=== PATIENT | male | born 1960 | race Caucasian/White ===

== ENCOUNTER 2016-03-09 08:01 | Outpatient (CLI) | payer BC, OTHER ==
[2016-03-09 08:36] VITALS: RESP 14
[2016-03-09] MEDS ORDERED: diphenhydrAMINE 50 MG CAP PO STA (08:47)
[2016-03-09 09:23] VITALS: BP 193/111; PULSE 60
--- NOTE | 2016-03-09 15:51 | CT ---
EXAMINATION TYPE: CT brain wo/w con DATE OF EXAM: 03/09/2016 8:47 AM COMPARISON: NONE HISTORY: Patient complains of increasing frequency and severity of headaches since heart cath [address] DLP: 1954 mGycm, Automated exposure control for dose reduction was used. CONTRAST: Patient injected with 100 mL of Omnipaque 300. CT of the brain is performed utilizing 3 mm thick sections through the posterior fossa and 3 mm thick sections through the remaining calvarium. Study is performed within 24 hours of arrival to the hospital. No abnormal hyperdensity is present to suggest an acute intracranial hemorrhage. No mass lesion is evident. No acute infarcts are evident. No abnormal enhancement is evident. Signal within the brain appears n ormal. Ventricles and sulci are appropriate for the patient age. Paranasal sinuses and mastoid air cells within the [id number]-tj-dkol are clear. Impressions: 1. Normal pre and postcontrast CT brain.
== END 2016-03-09 09:29 | disposition home or self-care (01) ==
LOC: RADCTMAIN 08:01
PROVIDERS: ATTEND Psychiatry & Neurology Pain Medicine
DX: R51 Headache (principal)
CPT/HCPCS: 70470; Q9967

== ENCOUNTER → 2016-07-30 | Outpatient (CLI) | payer OTHER ==
--- NOTE | 2016-07-31 08:42 | XR ---
Lumbar spine with flexion and extension views 6 views of the lumbar spine are submitted There is mild dextroscoliosis centered at L3. Multilevel spondylosis is present. Loss of disc height present at L5-S1. Sclerosis present in the posterior elements. No significant listhesis noted on flex ion and extension views. Lumbar vertebral bodies show preserved height and bone mineralization. IMPRESSION: Degenerative disc disease. Mild scoliosis.
== END ==
LOC: RADXRMAIN 12:54
PROVIDERS: ATTEND Psychiatry & Neurology Neurology
DX: M51.36 Other intervertebral disc degeneration, lumbar region (principal); M41.86 Other forms of scoliosis, lumbar region
CPT/HCPCS: 72114

== ENCOUNTER → 2017-03-18 | Outpatient (CLI) | payer OTHER ==
[2017-03-18 12:37] LABS: Basophils # (A) 0.2 k/uL (0-0.2); Basophils % (A) 1 %; Eosinophils # (A) 0.4 k/uL (0-0.7); Eosinophils % (A) 2 %; HCT 46.7 % (39.0-53.0); HGB 14.9 gm/dL (13.0-17.5); Lymphocytes # (A) 3.9 k/uL (1.0-4.8); Lymphocytes % (A) 26 %; MCH 30.2 pg (25.0-35.0); MCHC 31.9 g/dL (31.0-37.0); MCV 94.8 fL (80.0-100.0); Monocytes % (A) 7 %; Neutrophils # (A) 9.5 k/uL (1.3-7.7); Neutrophils % (A) 63 %; Platelet Count 187 k/uL (150-450); RBC 4.92 m/uL (4.30-5.90); RDW 14.8 % (11.5-15.5); WBC 15.2 k/uL (3.8-10.6)
[2017-03-18 12:53] LABS: ALT 50 U/L (21-72); AST 26 U/L (17-59); Albumin 3.9 g/dL (3.5-5.0); Alkaline Phosphatase 75 U/L (38-126); Anion Gap 10 mmol/L; Blood Urea Nitrogen 17 mg/dL (9-20); Calcium 8.7 mg/dL (8.4-10.2); Carbon Dioxide 35 mmol/L (22-30); Chloride 96 mmol/L (98-107); Glucose 141 mg/dL (74-99); Potassium 3.4 mmol/L (3.5-5.1); Sodium 141 mmol/L (137-145); Total Bilirubin 0.5 mg/dL (0.2-1.3); Total Protein 6.6 g/dL (6.3-8.2)
[2017-03-18 13:23] LABS: Prostate Specific Antigen 0.75 ng/mL (0.00-4.00)
== END | disposition home or self-care (01) ==
LOC: LABWHC1 12:20
PROVIDERS: ATTEND Family Medicine
DX: E78.5 Hyperlipidemia, unspecified (principal); Z12.11 Encounter for screening for malignant neoplasm of colon
CPT/HCPCS: 36415; 80053; 84153; 85025

== ENCOUNTER → 2017-05-16 | Outpatient (CLI) | payer OTHER ==
--- NOTE | 2017-05-16 14:42 | US ---
EXAMINATION TYPE: US carotid duplex BILAT DATE OF EXAM: 05/16/2017 COMPARISON: NONE CLINICAL HISTORY: R42 Vertigo. Dizziness for 1 year, headaches EXAM MEASUREMENTS: RIGHT: Peak Systolic Velocity (PSV) cm/sec ----- Right CCA: 68.6 ----- Right ICA: 64.2 ----- Right ECA: 76.4 ICA/CCA ratio: 0.9 RIGHT: End Diastole cm/sec ----- Right CCA: 21.5 ----- Right ICA: 35.4 ----- Right ECA: 12.7 LEFT: Peak Systolic Velocity (PSV) cm/sec ----- Left CCA: 57.5 ----- Left ICA: 66.2 ----- Left ECA: 61.9 ICA/CCA ratio: 1.2 LEFT: End Diastole cm/sec ----- Left CCA: 19.1 ----- Left ICA: 32.2 ----- Left ECA: 12.1 VERTEBRALS (direction of flow): Right Vertebral: unable to visualize Left Vertebral: Antegrade Rhythm: Normal Mild plaque bilateral bifurcations. No evidence of significant stenosis. Unable to visualize flow wit hin right vertebral IMPRESSION: 1. Inability to visualize flow within the right vertebral artery. This could represent total occlusi on or artifact and CT neck could be performed for further evaluation. 2. Mild grayscale atheromatous plaquing within the carotid bulbs and left internal carotid artery wi th no hemodynamically significant stenosis within either carotid arterial system.
== END | disposition home or self-care (01) ==
LOC: RADUSWWP 10:06
PROVIDERS: ATTEND Psychiatry & Neurology Pain Medicine
DX: I65.23 Occlusion and stenosis of bilateral carotid arteries (principal)
CPT/HCPCS: 93880

== ENCOUNTER → 2017-06-03 | Outpatient (CLI) | payer OTHER ==
--- NOTE | 2017-06-03 18:28 | CT ---
EXAMINATION TYPE: CT angio head neck DATE OF EXAM: 06/03/2017 HISTORY: carotid stenosis dizziness COMPARISON: NONE CT DLP: 1409.7 mGycm. Automated Exposure Control for Dose Reduction was Utilized. TECHNIQUE: CTA scan of the neck and head is performed with IV Contrast, patient injected with 100 mL of Isovue 370, axial images are obtained, coronal and sagittal reformatted images are reviewed. Thre e-D reconstructed images are created on an independent workstation and reviewed. FINDINGS: The noncontrast images show normal ventricles. There is no mass effect nor midline shift. There is no sign of intracranial hemorrhage. The calvarium is intact. There is normal branching pattern of the great vessels on the aortic arch. There is minimal atheroscl erotic vascular calcification. There is arterial flow in the common internal and external carotid art eries bilaterally. There is minimal plaque at the origin of the right internal carotid artery with mateusz men narrowing of 20%. I see no narrowing on the left side. There is no evidence of carotid dissection . There is bilateral arterial flow in the vertebral arteries. The basilar artery appears to fill only from the left side. There is arterial flow in the anterior middle and posterior cerebral arteries. The basilar artery sahara ls the left posterior cerebral artery. There is apparent filling of the right posterior cerebral brie ry through the posterior communicating artery on the right side. I see no evidence of intracranial ar terial stenosis. There is normal contrast opacification of the venous sinuses. There is no evidence o f spasm or neovascularity. CONCLUSION: There is approximate 20% stenosis at the origin of the right internal carotid artery. Otherwise negat james CT angiogram of the head and neck.
== END | disposition home or self-care (01) ==
LOC: RADCTMAIN 16:43
PROVIDERS: ATTEND Psychiatry & Neurology Neurology
DX: I65.21 Occlusion and stenosis of right carotid artery (principal)
CPT/HCPCS: 70496; 70498; Q9967

== ENCOUNTER → 2017-12-12 | Outpatient (CLI) | payer OTHER ==
[2017-12-12 16:16] LABS: ALT 27 U/L (21-72); AST 22 U/L (17-59); Albumin 4.4 g/dL (3.5-5.0); Alkaline Phosphatase 71 U/L (38-126); Anion Gap 9 mmol/L; Blood Urea Nitrogen 17 mg/dL (9-20); Calcium 8.9 mg/dL (8.4-10.2); Carbon Dioxide 31 mmol/L (22-30); Chloride 97 mmol/L (98-107); Cholesterol 214 mg/dL (<200); Glucose 120 mg/dL (74-99); HDL Cholesterol 52 mg/dL (40-60); LDL Cholesterol,Calculated 114 mg/dL (0-99); Potassium 3.6 mmol/L (3.5-5.1); Sodium 137 mmol/L (137-145); Total Bilirubin 0.6 mg/dL (0.2-1.3); Total Protein 7.3 g/dL (6.3-8.2); Triglycerides 242 mg/dL (<150)
[2017-12-12 16:24] LABS: Basophils # (A) 0.1 k/uL (0-0.2); Basophils % (A) 1 %; Eosinophils # (A) 0.2 k/uL (0-0.7); Eosinophils % (A) 1 %; HCT 49.1 % (39.0-53.0); HGB 15.9 gm/dL (13.0-17.5); Lymphocytes # (A) 3.1 k/uL (1.0-4.8); Lymphocytes % (A) 21 %; MCHC 32.3 g/dL (31.0-37.0); MCV 89.7 fL (80.0-100.0); Mean Platelet Volume 9.1; Monocytes # (A) 0.7 k/uL (0-1.0); Monocytes % (A) 5 %; Neutrophils # (A) 10.3 k/uL (1.3-7.7); Neutrophils % (A) 71 %; Platelet Count 192 k/uL (150-450); RBC 5.47 m/uL (4.30-5.90); RDW 13.4 % (11.5-15.5); WBC 14.6 k/uL (3.8-10.6)
== END ==
LOC: LABWHC1 14:47
PROVIDERS: ATTEND Family Medicine
DX: E78.5 Hyperlipidemia, unspecified (principal); I10 Essential (primary) hypertension
CPT/HCPCS: 36415; 80053; 80061; 82306; 85025

== ENCOUNTER → 2017-12-19 | Outpatient (CLI) | payer OTHER ==
[2017-12-19 12:41] LABS: Cholesterol 191 mg/dL (<200); HDL Cholesterol 51 mg/dL (40-60); LDL Cholesterol,Calculated 113 mg/dL (0-99); Triglycerides 133 mg/dL (<150)
== END ==
LOC: LABWHC1 11:12
PROVIDERS: ATTEND Nurse Practitioner Adult Health
DX: E78.5 Hyperlipidemia, unspecified (principal)
CPT/HCPCS: 36415; 80061

== ENCOUNTER → 2018-01-17 | Outpatient (CLI) | payer OTHER ==
[2018-01-17 13:54] LABS: HCT 52.4 % (39.0-53.0); HGB 17.1 gm/dL (13.0-17.5); MCH 30.5 pg (25.0-35.0); MCHC 32.7 g/dL (31.0-37.0); MCV 93.3 fL (80.0-100.0); Mean Platelet Volume 8.8; Platelet Count 171 k/uL (150-450); RBC 5.61 m/uL (4.30-5.90); WBC 13.3 k/uL (3.8-10.6)
[2018-01-17 14:02] LABS: Potassium 4.3 mmol/L (3.5-5.1)
== END | disposition home or self-care (01) ==
LOC: LABPAT 13:12
PROVIDERS: ATTEND Internal Medicine Interventional Cardiology
DX: Z01.812 Encounter for preprocedural laboratory examination (principal); I25.10 Atherosclerotic heart disease of native coronary artery without angina pectoris; I25.5 Ischemic cardiomyopathy
CPT/HCPCS: 36415; 80051; 82565; 84520; 85027

== ENCOUNTER → 2018-01-24 | Day surgery (SDC) | payer OTHER ==
[2018-01-19 11:17] VITALS: BMI 33.2
[~2018-01-24] MED LIST: ALPRAZolam 0.25 MG TAB PO PRN; ALPRAZolam 0.5 MG TAB PO PRN; ASPIRIN 325 MG TAB PO STA; ATORVASTATIN 80 MG TAB PO STA; HEPARIN SODIUM 1,000 UN/ML (10ML VL) IV ONE; HEPARIN SODIUM 1,000 UN/ML (10ML VL) ONE; IOPAMIDOL-370 125ML BTL INJ ONE; LIDOCAINE 1% INJ 10MG/ML (20 ML MDV) ONE; LIDOCAINE 1% INJ 10MG/ML (20 ML MDV) SQ ONE; MIDAZOLAM 2 MG/2 ML VIAL IV ONE; MIDAZOLAM 2 MG/2 ML VIAL ONE; NITROGLYCERIN SL TABS 0.4 MG TAB SUBLINGUAL PRN; RX INFO: IV CONTRAST WAS GIVEN 1 EACH MISC MISCELLANE PRN; SODIUM CHLORIDE 0.9% 1,000 ML IV SCH; SODIUM CHLORIDE 0.9% 1,000 ML in EMPTY BAG 1 BAG IV ONE; VERAPAMIL 2.5 MG/ML 2 ML AMP ONE
[2018-01-24 07:52] VITALS: RESP 18; TEMP 97.6
[2018-01-24 08:14] LABS: Glucose,Whole Blood 154 mg/dL (75-99)
[2018-01-24 08:57] LABS: Basophils # (A) 0.1 k/uL (0-0.2); Basophils % (A) 0 %; Eosinophils # (A) 0.1 k/uL (0-0.7); Eosinophils % (A) 0 %; HCT 45.3 % (39.0-53.0); HGB 14.6 gm/dL (13.0-17.5); Lymphocytes # (A) 1.5 k/uL (1.0-4.8); Lymphocytes % (A) 12 %; MCH 30.5 pg (25.0-35.0); MCHC 32.3 g/dL (31.0-37.0); MCV 94.4 fL (80.0-100.0); Mean Platelet Volume 8.8; Monocytes # (A) 0.6 k/uL (0-1.0); Monocytes % (A) 5 %; Neutrophils # (A) 10.2 k/uL (1.3-7.7); Neutrophils % (A) 81 %; Platelet Count 175 k/uL (150-450); RDW 14.3 % (11.5-15.5); WBC 12.6 k/uL (3.8-10.6)
[2018-01-24] MEDS: VERAPAMIL SYRINGE (5 MG/10 ML) INTRAARTER ONE ×2 (09:38→09:50)
--- NOTE | 2018-01-24 10:19 | LTR ---
DATE OF SERVICE: 01/24/2018 RE: Jackson Kumar Dear Dr. Lange; Mr. Jackson Kumar underwent a heart catheterization today for recurrent episodes of chest discomfort concerning for angina. The heart catheterization revealed patent stent in the mid left anterior descending artery. I want to thank you for allowing me to participate in his care and please do not hesitate to call if you have any question or concern. Sincerely, MD LEIDY Garay / GABRIEL: [id number] /
--- NOTE | 2018-01-24 10:22 | CC ---
CARDIAC CATHETERIZATION REPORT DATE OF SERVICE: January 24, 2018 PERFORMING PHYSICIAN: Juvencio Hdz MD, elementary school registrar. PROCEDURE PERFORMED: 1. Selective right and left coronary angiogram. 2. Left heart catheterization. INDICATION: This is a pleasant, 57-year-old gentleman with known history of coronary artery disease and known intermediate disease involving the proximal RCA, chronic total occlusion of the left circumflex, and stent in the mid LAD, was experiencing chest discomfort concerning for angina. Because of that, a heart catheterization was advised. APPROACH: Right radial artery. COMPLICATION: None. LEVEL OF SEDATION: Moderate with sedation length of 14 minutes. PROCEDURE DESCRIPTION: After obtaining an informed consent, the patient was brought to cardiac bottle label inspector. The right radial artery was cannulated using micropuncture technique, the micropuncture wire passed easily then I placed a 6-Colombian sheath in the right radial artery. After that, I did selective right and left coronary angiogram using JR4 and JL3.5 catheters. Left heart catheterization was performed using 6-Colombian pigtail catheter. The procedure was completed without any complication. SELECTIVE CORONARY ANGIOGRAM: 1. The right coronary artery is a large caliber vessel. It is a dominant vessel. The proximal RCA has eccentric lesion appeared to be in the range of 50% and is unchanged compared to before. The mid RCA appeared to have mild disease only and RCA distally is normal and bifurcates into PDA and PLV branches, both are angiographically normal. 2. The left main is angiographically normal. It bifurcates into left circumflex and left anterior descending artery. 3. Left circumflex is a large caliber vessel and it is probably a nondominant vessel. The left circumflex is chronically occluded in the midportion. This is known from before. 4. The LAD: The proximal LAD appeared to be angiographically normal. It gives rise into a large diagonal branch which seems to be angiographically normal. The mid LAD is stented and the stent is patent. The LAD distally is angiographically normal. HEMODYNAMICS: The left ventricular end-diastolic pressure was 12 mmHg and no gradient was identified across the aortic valve. CONCLUSION: 1. Intermediate disease involving the proximal RCA, unchanged compared to before. 2. Known chronic total occlusion of the left circumflex which is also unchanged compared to before. 3. Patent stent in the mid left anterior descending artery. POSTPROCEDURE MANAGEMENT: Giving the unchanged anatomy and the patent stent in the mid LAD, I did recommend maximize medical treatment and follow up with the patient. LEIDY / GABRIEL: [id number] /
[2018-01-24 15:02] VITALS: BP 133/61; PULSE 88
== END ==
LOC: CATHCVL 07:17
PROVIDERS: ATTEND Internal Medicine Interventional Cardiology
DX: I25.110 Atherosclerotic heart disease of native coronary artery with unstable angina pectoris (principal); I25.82 Chronic total occlusion of coronary artery; I10 Essential (primary) hypertension; F17.210 Nicotine dependence, cigarettes, uncomplicated; E78.5 Hyperlipidemia, unspecified; Z82.49 Family history of ischemic heart disease and other diseases of the circulatory system; Z95.5 Presence of coronary angioplasty implant and graft; I25.5 Ischemic cardiomyopathy; Z79.51 Long term (current) use of inhaled steroids; Z79.899 Other long term (current) drug therapy
CPT/HCPCS: 93458; 85025; C1769; C1894; J2250; J2001; J1644; Q9967

== ENCOUNTER → 2018-03-29 | Outpatient (CLI) | payer OTHER ==
[2018-03-29 13:19] LABS: Basophils # (A) 0.2 k/uL (0-0.2); Basophils % (A) 2 %; Eosinophils # (A) 0.4 k/uL (0-0.7); Eosinophils % (A) 4 %; Lymphocytes # (A) 2.5 k/uL (1.0-4.8); Lymphocytes % (A) 23 %; MCH 30.2 pg (25.0-35.0); MCV 94.4 fL (80.0-100.0); Monocytes # (A) 0.6 k/uL (0-1.0); Monocytes % (A) 6 %; Neutrophils # (A) 6.9 k/uL (1.3-7.7); Neutrophils % (A) 64 %; Platelet Count 183 k/uL (150-450); RDW 13.7 % (11.5-15.5); WBC 10.8 k/uL (3.8-10.6)
[2018-03-29 18:18] LABS: Albumin 4.4 g/dL (3.80-4.90); Anion Gap 8.8 mmol/L (4.00-12.00); Carbon Dioxide 30.2 mmol/L (21.6-31.8); Globulin 2.2 g/dL (1.6-3.3); Potassium 3.7 mmol/L (3.5-5.5); Total Bilirubin 0.6 mg/dL (0.2-1.2); Total Protein 6.6 g/dL (6.2-8.2)
[2018-03-29 20:03] LABS: Hemoglobin A1C 6.1 % (4.0-6.0)
== END | disposition home or self-care (01) ==
LOC: LABWHC1 11:59
PROVIDERS: ATTEND Family Medicine
DX: Z00.00 Encounter for general adult medical examination without abnormal findings (principal)
CPT/HCPCS: 36415; 80053; 83036; 85025

== ENCOUNTER → 2018-10-04 | Outpatient (CLI) | payer MEDICARE, OTHER ==
[2018-10-04 13:06] LABS: Basophils # (A) 0.1 k/uL (0-0.2); Basophils % (A) 1 %; Eosinophils # (A) 0.3 k/uL (0-0.7); Eosinophils % (A) 4 %; HCT 51.5 % (39.0-53.0); HGB 16.4 gm/dL (13.0-17.5); Lymphocytes # (A) 2.6 k/uL (1.0-4.8); Lymphocytes % (A) 31 %; MCH 29.6 pg (25.0-35.0); MCHC 31.9 g/dL (31.0-37.0); Mean Platelet Volume 9.4; Monocytes # (A) 0.5 k/uL (0-1.0); Monocytes % (A) 5 %; Neutrophils # (A) 4.9 k/uL (1.3-7.7); Neutrophils % (A) 58 %; Platelet Count 154 k/uL (150-450); RBC 5.54 m/uL (4.30-5.90); RDW 13.1 % (11.5-15.5); WBC 8.4 k/uL (3.8-10.6)
[2018-10-04 19:17] LABS: Hemoglobin A1C 6.1 % (4.0-6.0)
[2018-10-04 20:37] LABS: African American GFR (CKD) 96.4 (60.0-200.0); Albumin 4.2 g/dL (3.80-4.90); Albumin/Globulin Ratio 2.21 (1.60-3.17); Anion Gap 9.2 mmol/L (4.00-12.00); Calcium 8.4 mg/dL (8.7-10.3); Carbon Dioxide 28.8 mmol/L (21.6-31.8); Globulin 1.9 g/dL (1.6-3.3); Potassium 3.7 mmol/L (3.5-5.5); Total Bilirubin 0.3 mg/dL (0.3-1.2); Total Protein 6.1 g/dL (6.2-8.2)
== END | disposition home or self-care (01) ==
LOC: LABWHC1 12:35
PROVIDERS: ATTEND Family Medicine
DX: E55.9 Vitamin D deficiency, unspecified (principal); I10 Essential (primary) hypertension; R73.01 Impaired fasting glucose; R97.20 Elevated prostate specific antigen [PSA]
CPT/HCPCS: 36415; 80053; 82306; 83036; 84153; 85025

== ENCOUNTER → 2020-01-23 | Outpatient (CLI) | payer MEDICARE, OTHER ==
[2020-01-23 16:58] LABS: INR 5.1 (<1.2)
== END | disposition home or self-care (01) ==
LOC: LABWHC1 15:17
PROVIDERS: ATTEND Psychiatry & Neurology Pain Medicine
DX: Z51.81 Encounter for therapeutic drug level monitoring (principal)
CPT/HCPCS: 36415; 85610

== ENCOUNTER → 2020-01-25 | Outpatient (CLI) | payer MEDICARE, OTHER ==
[2020-01-26] LABS: INR 2.66 (0.90-1.11); Prothrombin Time 26.7 sec (9.9-11.9)
== END | disposition home or self-care (01) ==
LOC: LABWHC1 14:31
PROVIDERS: ATTEND Psychiatry & Neurology Pain Medicine
DX: Z01.818 Encounter for other preprocedural examination (principal); Z51.81 Encounter for therapeutic drug level monitoring; Z79.899 Other long term (current) drug therapy
CPT/HCPCS: 36415; 85610

== ENCOUNTER 2020-03-05 15:26 | Emergency (ER) | payer MEDICARE, OTHER ==
[2020-03-05 15:45] VITALS: BP 118/77; PULSE 86; RESP 18; TEMP 98.5
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
--- NOTE | 2020-03-05 16:24 | XR ---
Left ankle and left leg HISTORY: Trauma and pain 3 views of the left ankle, 4 views of the left leg There is an oblique fracture through the distal fibula metaphysis with displacement of approximately 4 mm. No dislocation. Small ossific fragment is present along the medial malleolus on the oblique vie w. There is a plantar calcaneal spur present. Atherosclerotic vascular calcifications are noted incid entally within the left leg. Questionable widening along the base of the medial malleolus and talus. IMPRESSION: Fracture of the distal fibula, possible avulsion injury, chip fracture of the medial mall eolus. There is associated soft tissue swelling. Plantar calcaneal spur.
[2020-03-05] MEDS ORDERED: ACET/COD 300 MG/30 MG STARTER PACK 6 TAB BTL PO STA (16:47)
== END 2020-03-05 17:53 | disposition home or self-care (01) ==
LOC: EC 15:26
DX: S82.52XA Displaced fracture of medial malleolus of left tibia, initial encounter for closed fracture (principal); S82.832A Other fracture of upper and lower end of left fibula, initial encounter for closed fracture; J44.9 Chronic obstructive pulmonary disease, unspecified; E78.5 Hyperlipidemia, unspecified; K21.9 Gastro-esophageal reflux disease without esophagitis; I25.2 Old myocardial infarction; I11.9 Hypertensive heart disease without heart failure; I43 Cardiomyopathy in diseases classified elsewhere; F32.9 Major depressive disorder, single episode, unspecified; F17.200 Nicotine dependence, unspecified, uncomplicated; F41.9 Anxiety disorder, unspecified; Z79.51 Long term (current) use of inhaled steroids; Z79.1 Long term (current) use of non-steroidal anti-inflammatories (NSAID); Z79.01 Long term (current) use of anticoagulants; Z91.041 Radiographic dye allergy status; Z91.013 Allergy to seafood; Z91.030 Bee allergy status; Z79.899 Other long term (current) drug therapy; Z95.810 Presence of automatic (implantable) cardiac defibrillator; Z95.5 Presence of coronary angioplasty implant and graft; Z98.890 Other specified postprocedural states; W00.0XXA Fall on same level due to ice and snow, initial encounter
CPT/HCPCS: 29515; 99283

== ENCOUNTER → 2020-03-14 | Outpatient (CLI) | payer MEDICARE, OTHER ==
[2020-03-14 12:56] LABS: Anisocytosis Slight; Basophils % (A) 0 %; Eosinophils # (A) 0.1 k/uL (0-0.7); Eosinophils % (A) 0 %; HCT 37.2 % (39.0-53.0); HGB 11.9 gm/dL (13.0-17.5); Hypochromasia Slight; Lymphocytes # (A) 1.5 k/uL (1.0-4.8); Lymphocytes % (A) 7 %; MCH 31.7 pg (25.0-35.0); MCHC 31.9 g/dL (31.0-37.0); MCV 99.2 fL (80.0-100.0); Macrocytosis Moderate; Mean Platelet Volume 8.5; Monocytes # (A) 1.1 k/uL (0-1.0); Monocytes % (A) 6 %; Neutrophils # (A) 17.8 k/uL (1.3-7.7); Neutrophils % (A) 86 %; Platelet Count 190 k/uL (150-450); RBC 3.75 m/uL (4.30-5.90); RDW 17.6 % (11.5-15.5); WBC 20.6 k/uL (3.8-10.6)
[2020-03-14 13:24] LABS: Potassium 4.5 mmol/L (3.5-5.1)
[2020-03-14 14:09] LABS: Prothrombin Time 10.5 sec (9.0-12.0)
== END | disposition home or self-care (01) ==
LOC: LABPAT 11:32
PROVIDERS: ATTEND Orthopaedic Surgery
DX: Z01.812 Encounter for preprocedural laboratory examination (principal); S82.842D Displaced bimalleolar fracture of left lower leg, subsequent encounter for closed fracture with routine healing; Z79.01 Long term (current) use of anticoagulants
CPT/HCPCS: 36415; 80051; 85025; 85610

== ENCOUNTER 2020-03-19 12:45 | Day surgery (SDC) | payer MEDICARE, OTHER ==
[2020-03-17 13:30] VITALS: BMI 25.7
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
[~2020-03-19 12:45] MED LIST changes: +ACETAMINOPHEN TAB 500 MG TAB PO PRN; -ALPRAZolam 0.25 MG TAB PO PRN; -ALPRAZolam 0.5 MG TAB PO PRN; -ASPIRIN 325 MG TAB PO STA; -ATORVASTATIN 80 MG TAB PO STA; +DEXAMETHASONE SOD PHOSPHATE 4 MG/ML 1 ML VIAL IV ONE; -HEPARIN SODIUM 1,000 UN/ML (10ML VL) IV ONE; -HEPARIN SODIUM 1,000 UN/ML (10ML VL) ONE; +HYDROmorphone 0.5 MG/0.5 ML SYRINGE IVP PRN; -IOPAMIDOL-370 125ML BTL INJ ONE; +LACTATED RINGERS 1,000 ML IV SCH; -LIDOCAINE 1% INJ 10MG/ML (20 ML MDV) ONE; -LIDOCAINE 1% INJ 10MG/ML (20 ML MDV) SQ ONE; -MIDAZOLAM 2 MG/2 ML VIAL IV ONE; -MIDAZOLAM 2 MG/2 ML VIAL ONE; -NITROGLYCERIN SL TABS 0.4 MG TAB SUBLINGUAL PRN; +ONDANSETRON 4 MG/2 ML VIAL IVP ONE; +ONDANSETRON 4 MG/2 ML VIAL IVP PRN; -RX INFO: IV CONTRAST WAS GIVEN 1 EACH MISC MISCELLANE PRN; -SODIUM CHLORIDE 0.9% 1,000 ML IV SCH; -SODIUM CHLORIDE 0.9% 1,000 ML in EMPTY BAG 1 BAG IV ONE; -VERAPAMIL 2.5 MG/ML 2 ML AMP ONE
[2020-03-19] MEDS ORDERED: MIDAZOLAM 2 MG/2 ML VIAL IV ONE (14:39)
--- NOTE | 2020-03-19 15:03 | P.ANPRN ---
Procedure Note - Anesthesia - Nerve Block Performed Left Adductor Canal Single Time Out Performed: Yes (143) Date of Procedure: 03/19/20 Procedure Start Time: 14:45 Procedure Stop Time: 14:51 Location of Patient: PreOp Indication: Acute Post-Operative Pain, Requested by Surgeon Specifically requested for management of pain by : Oleg Caba Sedation Type: Sedate with meaningful contact maintained Preparation: Sterile Prep Position: Supine Catheter: None Needle Types: Pajunk Needle Gauge: 21 Ultrasound used to visualize needle placement: Yes Ultrasound used to observe medication spread: Yes Injectate: 0.5% Ropivacaine (see comment for volume) (20cc) Blood Aspirated: No Pain Paresthesia on Injection Noted: No Resistance on Injection: Normal Image Stored and Saved: Yes Events: Uneventful and Well Tolerated Left Popliteal Single Time Out Performed: Yes (143) Date of Procedure: 03/19/20 Procedure Start Time: 14:39 Procedure Stop Time: 14:44 Location of Patient: PreOp Indication: Acute Post-Operative Pain, Requested by Surgeon Specifically requested for management of pain by DrIhsan: Oleg Caba Sedation Type: Sedate with meaningful contact maintained Preparation: Sterile Prep Position: Supine Catheter: None Needle Types: Pajunk Needle Gauge: 21 Ultrasound used to visualize needle placement: Yes Ultrasound used to observe medication spread: Yes Injectate: 0.5% Ropivacaine (see comment for volume) (20cc) Blood Aspirated: No Pain Paresthesia on Injection Noted: No Resistance on Injection: Normal Image Stored and Saved: Yes Events: Uneventful and Well Tolerated
[2020-03-19] MEDS ORDERED: LIDOCAINE 1% INJ 10MG/ML (20 ML MDV) ONE (16:42)
[2020-03-19] MEDS ORDERED: fentaNYL (PF) 50 MCG/ML 2 ML AMP ONE (16:42)
[2020-03-19] MEDS ORDERED: ROPIVACAINE 5 MG/ML 30 ML VIAL ONE (16:42)
[2020-03-19] MEDS ORDERED: MIDAZOLAM 2 MG/2 ML VIAL ONE (16:42)
[2020-03-19] MEDS ORDERED: PROPOFOL 10 MG/ML 20 ML VIAL IV ONE (16:42)
[2020-03-19] MEDS ORDERED: SUCCINYLCHOLINE CHLORIDE 100 MG/5 ML SYR IV ONE (16:42)
[2020-03-19] MEDS ORDERED: LACTATED RINGERS 1,000 ML IV ONE (17:49)
[2020-03-19 19:01] VITALS: TEMP 97.5
[2020-03-19] MEDS ORDERED: HYDROcodone/APAP 5-325MG 1 EACH TAB PO ONE (19:45)
[2020-03-19 19:50] VITALS: RESP 16
[2020-03-19] MEDS ORDERED: HYDROcodone/APAP 5-325MG 1 EACH TAB ONE (19:51)
[2020-03-19 20:02] VITALS: BP 151/69; PULSE 57
--- NOTE | 2020-03-20 08:07 | FL ---
EXAMINATION TYPE: FL guidance operating room, XR ankle limited LT DATE OF EXAM: 03/19/2020 CLINICAL HISTORY: Left ankle fracture. TECHNIQUE: Fluoroscopy. Intraoperative limited views left ankle. COMPARISON: Left ankle x-ray March 05, 2020. FINDINGS: Fluoroscopic guidance was provided during open reduction internal fixation procedure perfo rmed by Dr. Caba. A total of 53 seconds of fluoroscopic time was utilized during the procedure and 3 spot images was acquired. Intraoperative images obtained show placement of lateral fixating plate through spiral fracture later al malleolus. Improved alignment is seen after reduction and fixation on intraoperative images obtain ed. IMPRESSION: As Above.
--- NOTE | 2020-03-20 13:05 | P.OP ---
Date of Procedure: 03/19/20 Preoperative Diagnosis: Left ankle displaced, shortened, closed lateral malleolus fracture Postoperative Diagnosis: Left ankle displaced, shortened, closed lateral malleolus fracture Procedure(s) Performed: 1. Left ankle open reduction and internal fixation lateral malleolus fracture Implants: Arthrex 3.5 distal locking plate Anesthesia: ASHLI Surgeon: Oleg Caba Washroom Attendant #1: Ishan Frank (Was present for the entire case and was necessary due to the complextiy of the case) Estimated Blood Loss (ml): 20 IV fluids (ml): 1,200 Urine output (ml): 0 Pathology: none sent Condition: stable Disposition: PACU Indications for Procedure: The patient is a 59 year oldmale with a chief complaint of pain in the left ankle. Patient states that on 02/27/2020 that while getting out of his car at home he slipped on ice and fell, injuring his left ankle. Patient was seen in the Emergency Room where xrays were obtained and his ankle was wrapped in an solomon bandage and he was given a walking shoe. Patient reports lateral left ankle pain with swelling. He notes left ankle pain when walking. Patient is taking Aleve for pain. Patient is ambulating independently Operative Findings: Displaced, fracture calloused lateral malleolar fracture. Description of Procedure: The patient was seen and examined in the preoperative area. All preoperative protocols were followed. Informed consent was obtained risks and benefits of the procedure were discussed at length. Risks including bleeding infection damage to the surrounding tissue and risk of reoperation were discussed with the patient. Risk of anesthesia up to and including was a discussed with the patient. These are outlined in the risk reviewed. They were willing to accept these risks and all of the risks of surgery. The patient was given a weight- based dose of antibiotics in the form of 2 g Ancef IVPB 1 preoperatively. The patient was seen and evaluated by the anesthesia team who deemed them fit for surgery. The site was marked, the patient was willing to proceed with the procedure. The patient was transferred to the operative suite by the Department of anesthesia. There were then drifted off to sleep by the department of anesthesia and and general endotracheal intubation along with regional anesthetic anesthesia was used. Once adequate anesthesia had been obtained the patient was carefully transferred to the operative bed. All bony prominences were padded accordingly. SCDs were placed on the nonoperative lower extremities. Arms were well padded. Left lower extremity was exposed trigger was placed around the patient's left upper thigh and well-padded 10:15 was placed around this. Patient left leg was then placed on a bone foam elevator and a bump was placed on the patient's left hip. The patient's nonoperative leg was secured to the table with tape and well-padded. Preoperative briefing was done with the operative team and everyone was ready for the procedure to start. The patients left lower extremity was then prepped and draped in the normal sterile fashion. Timeout was then performed and all parties in agreement with the procedure to be performed. Skin marker was used to grupo incision over the lateral malleolus. X-ray was used to grupo fracture sites as well as joint line. Skin incision was then made over the lateral malleolus and blunt dissection taken down to this area there was subperiosteal stripping secondary to the fracture and there was fracture hematoma as well as callus in this area secondary to the date of the fracture. A wood handled elevator was used to expose the bone edges as well as subperiosteally dissect to allow for visualization as well as fracture reduction. No sterile saline was used for irrigation of the fracture and curet was used to remove the fracture hematoma as well as the fracture callus that had formed in this area already. Was difficult to get the reduction secondary to the time frame of this fracture however once the 2 pieces were mobilized the fracture did ghosh in very well. Bone clamps were used and the proximal distal fragment to allow for rotational control and a [id number] clamp was used to hold reduction. 2 lag screws were then placed first posterior to anterior through her leg by technique and then anterior to posterior proximally for her leg by technique as well as these held the fracture reduced the clamps were then removed. Neutralization plate was then selected and under AP and lateral fluoroscopy size and placed. This was held in place with 20 of pins. The plate was bent slightly to allow for the patient's anatomy. Under AP fluoroscopy then as confirmed good length alignment and rotation of the fracture. Distal locking screws and placed under fluoroscopic guidance to ensure no penetration of the joint space these were locking screws that were placed. One shaft screw was placed distal the fracture then in a nonlocking fashion in the proximal shaft screws were drilled and placed and measured a nonlocking fashion and all had good purchase. AP lateral fluoroscopy confirmed good placement of the plate good reduction of the fracture and good length alignment and rotation. Contents was performed there is no syndesmotic widening there is no medial clear space widening external rotation stress test was performed under fluoroscopy and there was no medial gapping or talar shift. The wound was then copiously irrigated with normal sterile saline. The wound was then closed with 0 Vicryl 2-0 Vicryl and subcu region followed by 2-0 nylon in a horizontal mattress fashion. Skin edges approximated very well. The patient did have significant improvement bruising throughout his leg secondary to his Coumadin use and how long this fracture is been here as well as him ambulating on the fracture. Care was taken to approximate the skin edges without tension due to this. The wound was then cleaned and dressed sterilely with sterile Adaptic 4 x 4's ABDs and web roll patient was then placed in a well-padded well-formed short-leg cast on the left side this was then bivalved to allow for swelling and overwrapped with an Solomon wrap. The patient was then transferred back to their hospital bed. There were awakened by department of anesthesia having tolerated the procedure very well with no complications. The patient was then transported to the postoperative care unit in stable condition.
== END 2020-03-19 20:28 | disposition home or self-care (01) ==
LOC: OR 12:45
PROVIDERS: ATTEND Orthopaedic Surgery
DX: S82.62XA Displaced fracture of lateral malleolus of left fibula, initial encounter for closed fracture (principal); W00.0XXA Fall on same level due to ice and snow, initial encounter; Y93.01 Activity, walking, marching and hiking; Z91.013 Allergy to seafood; Z91.041 Radiographic dye allergy status; Z88.5 Allergy status to narcotic agent; I25.2 Old myocardial infarction; I48.91 Unspecified atrial fibrillation; I11.0 Hypertensive heart disease with heart failure; I50.9 Heart failure, unspecified; E78.5 Hyperlipidemia, unspecified; Z95.5 Presence of coronary angioplasty implant and graft; Z95.810 Presence of automatic (implantable) cardiac defibrillator; J44.9 Chronic obstructive pulmonary disease, unspecified; F17.210 Nicotine dependence, cigarettes, uncomplicated; F41.9 Anxiety disorder, unspecified; F31.9 Bipolar disorder, unspecified; Z87.11 Personal history of peptic ulcer disease; Z79.899 Other long term (current) drug therapy; Z79.02 Long term (current) use of antithrombotics/antiplatelets; Z87.01 Personal history of pneumonia (recurrent); H40.9 Unspecified glaucoma; I25.5 Ischemic cardiomyopathy; Z98.890 Other specified postprocedural states; Z83.3 Family history of diabetes mellitus; Z82.49 Family history of ischemic heart disease and other diseases of the circulatory system; Z91.030 Bee allergy status
CPT/HCPCS: 27792; 64447; 64450; 76942; 73600; C1713; J2250; J1100; J0690; J2405; J2001; J3010; J2795; J0330; J2704; J1170; 64445

== ENCOUNTER → 2020-04-02 | Outpatient (CLI) | payer MEDICARE, OTHER ==
[2020-04-02 11:18] LABS: Anisocytosis Slight; HGB 14.3 gm/dL (13.0-17.5); Hypochromasia Slight; MCHC 32.4 g/dL (31.0-37.0); MCV 101.9 fL (80.0-100.0); Macrocytosis Moderate; Mean Platelet Volume 8.3; Platelet Count 174 k/uL (150-450); RBC 4.31 m/uL (4.30-5.90); RDW 16.3 % (11.5-15.5); WBC 9.4 k/uL (3.8-10.6)
[2020-04-02 20:27] LABS: African American GFR (CKD) 108.7 (60.0-200.0); Albumin 4.1 g/dL (3.80-4.90); Albumin/Globulin Ratio 2.41 (1.60-3.17); Anion Gap 8.7 mmol/L (4.00-12.00); BUN/Creat Ratio 13.33 Ratio (12.00-20.00); Calcium 8.7 mg/dL (8.7-10.3); Carbon Dioxide 29.3 mmol/L (21.6-31.8); Chol/HDL Ratio 4.5; Globulin 1.7 g/dL (1.6-3.3); LDL Cholesterol,Calculated 117.2 mg/dL (0.0-131.0); Magnesium 1.8 mg/dL (1.5-2.4); Non-African American GFR(CKD) 93.8 (60.0-200.0); Potassium 4.3 mmol/L (3.5-5.5); Total Bilirubin 0.5 mg/dL (0.3-1.2); Total Protein 5.8 g/dL (6.2-8.2); VLDL Calculation 43.8 mg/dL (5.00-40.00)
== END | disposition home or self-care (01) ==
LOC: LABWHC1 10:08
PROVIDERS: ATTEND Nurse Practitioner Adult Health
DX: I10 Essential (primary) hypertension (principal); I25.5 Ischemic cardiomyopathy; E78.5 Hyperlipidemia, unspecified; Z13.1 Encounter for screening for diabetes mellitus
CPT/HCPCS: 36415; 80053; 80061; 83036; 83735; 84443; 84481; 85027

== ENCOUNTER → 2020-05-05 | Outpatient (CLI) | payer MEDICARE, OTHER ==
--- NOTE | 2020-05-05 16:15 | XR ---
Left ankle HISTORY: Fracture 3 views of the left ankle correlated to prior exam 03/05/2020 Patient shows open reduction internal fixation for distal metaphyseal left fibular fracture, there is anatomic alignment. Some persistent lucency is seen across the fracture site. There is soft tissue s welling. No dislocation. Small ossific density distal to the medial malleolus is again noted consiste nt with avulsion injury. No evident periostitis. Plantar calcaneal spur is present. Some spurring pre sent at the tibiotalar joint is noted. IMPRESSION: Orthopedic follow-up.
== END ==
LOC: RADXRMAIN 15:45
PROVIDERS: ATTEND Orthopaedic Surgery
DX: S82.832D Other fracture of upper and lower end of left fibula, subsequent encounter for closed fracture with routine healing (principal)

== ENCOUNTER 2021-01-11 18:59 | Emergency (ER) | payer MEDICARE ==
--- NOTE | 2021-01-11 20:04 | XR ---
EXAMINATION TYPE: XR knee complete RT DATE OF EXAM: 01/11/2021 COMPARISON: NONE HISTORY: Knee pain TECHNIQUE: 3 views FINDINGS: There is knee joint effusion. I see no fracture nor dislocation. Joint spaces are fairly no rmal. Patella is intact. IMPRESSION: Knee joint effusion. No fracture seen.
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
[2021-01-11 21:55] VITALS: BP 140/81; PULSE 82; RESP 19; TEMP 97.4
== END 2021-01-11 21:50 | disposition home or self-care (01) ==
LOC: EC 18:59
DX: S80.01XA Contusion of right knee, initial encounter (principal); E78.5 Hyperlipidemia, unspecified; F17.200 Nicotine dependence, unspecified, uncomplicated; I10 Essential (primary) hypertension; I25.2 Old myocardial infarction; J44.9 Chronic obstructive pulmonary disease, unspecified; K21.9 Gastro-esophageal reflux disease without esophagitis; Z79.01 Long term (current) use of anticoagulants; Z79.51 Long term (current) use of inhaled steroids; Z88.5 Allergy status to narcotic agent; Z95.5 Presence of coronary angioplasty implant and graft; Z95.810 Presence of automatic (implantable) cardiac defibrillator; Z90.49 Acquired absence of other specified parts of digestive tract; Z91.041 Radiographic dye allergy status; Z91.013 Allergy to seafood; Z79.899 Other long term (current) drug therapy; W19.XXXA Unspecified fall, initial encounter
CPT/HCPCS: 99283

== ENCOUNTER → 2021-04-07 | Outpatient (CLI) | payer MEDICARE ==
--- NOTE | 2021-04-07 15:58 | US ---
EXAMINATION TYPE: US kidneys/renal and bladder DATE OF EXAM: 04/07/2021 COMPARISON: NONE CLINICAL HISTORY: R94.4 abnormal kidney functions. EXAM MEASUREMENTS: Right Kidney: 8.7 x 4.8 x 5.6 cm Left Kidney: 10.7 x 4.5 x 5.2 cm Right Kidney: Hypoechoic area with posterior enhancement; likely representing a cyst mid-pole measuri ng 4.0 x 3.6 x 3.3 cm Left Kidney: No hydronephrosis or masses seen Bladder: Not fully distended There is no evidence for hydronephrosis at this point in time. No nephrolithiasis is seen. The urin enedina bladder is anechoic. Bilateral ureteral jets are seen. IMPRESSION: Probable right renal cyst.
== END | disposition home or self-care (01) ==
LOC: RADUSWWP 15:23
PROVIDERS: ATTEND Family Medicine
DX: R94.4 Abnormal results of kidney function studies (principal)
CPT/HCPCS: 76770

== ENCOUNTER 2021-05-21 14:57 | Emergency (ER) | payer MEDICARE ==
[2021-05-21 15:09] VITALS: TEMP 98.1
[2021-05-21] MEDS ORDERED: SODIUM CHLORIDE 0.9% 500 ML 500 ML IV ONE (15:26)
[2021-05-21 15:41] LABS: Basophils # (A) 0.1 k/uL (0-0.2); Basophils % (A) 0 %; Eosinophils # (A) 0.2 k/uL (0-0.7); Eosinophils % (A) 1 %; HCT 46.5 % (39.0-53.0); HGB 15.7 gm/dL (13.0-17.5); Lymphocytes # (A) 2.4 k/uL (1.0-4.8); Lymphocytes % (A) 12 %; MCH 31.9 pg (25.0-35.0); MCHC 33.7 g/dL (31.0-37.0); MCV 94.6 fL (80.0-100.0); Mean Platelet Volume 12.1; Monocytes % (A) 5 %; Neutrophils # (A) 15.6 k/uL (1.3-7.7); Neutrophils % (A) 80 %; Platelet Count 174 k/uL (150-450); RBC 4.92 m/uL (4.30-5.90); RDW 14.1 % (11.5-15.5); WBC 19.5 k/uL (3.8-10.6)
[2021-05-21 15:54] LABS: Partial Thromboplastin Time 26.8 sec (22.0-30.0); Prothrombin Time 20.4 sec (9.0-12.0)
[2021-05-21 15:56] LABS: ALT 25 U/L (4-49); African American GFR (CKD) 76 (>60 ml/min/1.73 sqM); Alcohol <10 mg/dL; Anion Gap 13 mmol/L; Blood Urea Nitrogen 35 mg/dL (9-20); Calcium 8.4 mg/dL (8.4-10.2); Carbon Dioxide 35 mmol/L (22-30); Chloride 90 mmol/L (98-107); Glucose 125 mg/dL (74-99); Non-African American GFR(CKD) 65 (>60 ml/min/1.73 sqM); Sodium 138 mmol/L (137-145); Total Bilirubin 2.4 mg/dL (0.2-1.3); Total Protein 6.7 g/dL (6.3-8.2)
[2021-05-21 16:11] LABS: AST 93 U/L (17-59); Alkaline Phosphatase 79 U/L (38-126); Potassium 3.1 mmol/L (3.5-5.1)
--- NOTE | 2021-05-21 16:35 | CT ---
EXAMINATION TYPE: CT brain cspine wo con DATE OF EXAM: 05/21/2021 COMPARISON: NONE HISTORY: AMS with headache and neck pain. CT DLP: 3273.4 mGycm. Automated Exposure Control for Dose Reduction was Utilized. TECHNIQUE: CT scan of the head and cervical spine are performed without contrast. FINDINGS: Suboptimal due to patient motion. There is acute focal hemorrhage right frontal temporal j unction axial image 23. Additional acute subarachnoid hemorrhage adjacent to right brain stem axial image 20. No midline shift. Some areas of low attenuation in the deep and periventricular white matte r is nonspecific. The calvarium is intact. The globes are intact and the visualized sinuses are clear . Cervical spine is visualized in its entirety from C1 through upper thoracic levels and demonstrates s atisfactory alignment without evidence of acute fracture or dislocation. Prevertebral soft tissue ap pears within normal limits. The C1-C2 articulation is within normal limits on the coronal images. M oderate disc space narrowing and spurring C5-C6 level with posterior spur disc complex effacing the a nterior thecal sac. Partial visualization of pacemaker device. Lung apices show no pneumothorax. IMPRESSION: 1. There is no acute fracture or dislocation evident in the cervical spine. 2. Suboptimal study but confirmation of acute subarachnoid hemorrhage. Critical results communicated to ordering ER doctor via phone at time of dictation.
[2021-05-21] MEDS ORDERED: AMPICILLIN-SULBACTAM 3 GM in SODIUM CHLORIDE 0.9% 100 ML IVPB STA (16:38)
[2021-05-21] MEDS ORDERED: levETIRAcetam IV 1,500 MG in SALINE 1 100ML.BAG IVPB STA (16:41)
[2021-05-21] MEDS ORDERED: Kcentra PER PHARMACY 1 EACH MISC MISCELLANE PRN (16:42)
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
[2021-05-21] MEDS ORDERED: SODIUM CHLORIDE 0.9% 1,000 ML IV SCH (16:45)
[2021-05-21] MEDS ORDERED: PHYTONADIONE 10 MG in SODIUM CHLORIDE 0.9% 50 ML IVPB STA (16:53)
[2021-05-21] MEDS ORDERED: HUMAN PROTHROMBIN COMPLX 500 UNIT/16 ML VIAL IV ONE (17:00)
[2021-05-21] MEDS ORDERED: HUMAN PROTHROMBIN COMPLX IV ONE (17:00)
[2021-05-21 17:24] VITALS: BP 144/97; PULSE 87; RESP 26
--- NOTE | 2021-05-21 17:54 | XR ---
EXAMINATION TYPE: XR chest 1V portable DATE OF EXAM: 05/21/2021 COMPARISON: Chest x-ray dated 12/04/2015 HISTORY: Altered mental status TECHNIQUE: Single frontal view of the chest is obtained. FINDINGS: Pleural-parenchymal changes are stable. Findings consistent with remote trauma to the left hemithorax. Exam somewhat limited by patient's ability to cooperate. Aorta is ectatic And dense. Cardiac mediastinal silhouette stable accounting for differences in technique. There is a generator in left pectoral region, leads are present in the right atrium and ventricle. IMPRESSION: No acute process.
[2021-05-21] MEDS ORDERED: POTASSIUM CHLORIDE 10 MEQ in WATER FOR INJECTION 1 100ML.BAG IVPB SCH (18:00)
== END 2021-05-21 18:09 | disposition other institution (70) ==
LOC: EC 14:57
DX: S06.6X9A Traumatic subarachnoid hemorrhage with loss of consciousness of unspecified duration, initial encounter (principal); R40.2412 Glasgow coma scale score 13-15, at arrival to emergency department; D72.829 Elevated white blood cell count, unspecified; F17.200 Nicotine dependence, unspecified, uncomplicated; I25.2 Old myocardial infarction; J44.9 Chronic obstructive pulmonary disease, unspecified; I10 Essential (primary) hypertension; Z95.810 Presence of automatic (implantable) cardiac defibrillator; Z91.041 Radiographic dye allergy status; Z91.030 Bee allergy status; Z91.013 Allergy to seafood; Z88.5 Allergy status to narcotic agent; Z79.899 Other long term (current) drug therapy; Z79.51 Long term (current) use of inhaled steroids; Z79.01 Long term (current) use of anticoagulants; W18.09XA Striking against other object with subsequent fall, initial encounter
CPT/HCPCS: 82075; 36415; 93005; 80053; 82140; 84484; 85025; 85610; 85730; 71045; 72125; 70450; 99291; 96365; 96368; G0480; J3430; J3480; J0295; J7168; J1953; 80320